=== PATIENT | male | born 1995 | race Two or more races ===

== ENCOUNTER → 2023-04-23 | Outpatient (CLI) | payer OTHER | LOC: M RAD 12:57 | PROVIDERS: ATTEND Physician Assistant | DX: M54.9 Dorsalgia, unspecified (principal) ==

== ENCOUNTER 2023-06-15 07:54 | Emergency (ER) | payer OTHER ==
[~2023-06-15] VITALS: Ht 177.8 cm; Wt 92.7 kg
[2023-06-15] MEDS ORDERED: IBUP-1022 PO (09:36)
[2023-06-15 09:56] VITALS: BP 123/78; TEMP 97.2; O2SAT 97
== END 2023-06-15 09:59 | disposition home or self-care (01) ==
LOC: M ED 07:54
DX: S93.402A Sprain of unspecified ligament of left ankle, initial encounter (principal); S82.302A Unspecified fracture of lower end of left tibia, initial encounter for closed fracture; S92.155D Nondisplaced avulsion fracture (chip fracture) of left talus, subsequent encounter for fracture with routine healing; W18.42XA Slipping, tripping and stumbling without falling due to stepping into hole or opening, initial encounter; Y93.02 Activity, running

== ENCOUNTER → 2024-05-14 | Outpatient (CLI) | payer OTHER ==
[~2024-05-14] MED LIST: IBUP-1022 PO
== END ==
LOC: M CARPUL 07:51
DX: R06.09 Other forms of dyspnea (principal)